=== PATIENT | male | born 1965 | race Caucasian/White ===

== ENCOUNTER 2022-02-11 01:56 | Emergency (ER) | payer SELFPAY ==
[2022-02-11 02:31] LABS: #Eosinphils 0.1 thou/uL (0.0-0.7); #Lymphocytes 2.8 thou/uL (1.20-3.40); #Monocytes 0.7 thou/uL (0.11-0.59); #Neutrophils 6.8 thou/uL (1.40-6.50); %Basophils 0.3 % (0.0-1.0); %Eosinophils 0.9 % (0.0-10.0); %Lymphocytes 26.7 % (21.0-51.0); %Monocytes 6.8 % (0.0-10.0); %Neutrophils 65.4 % (42.0-75.0); Hemoglobin 13.9 g/dL (14.0-18.0); Mean Corpuscular HGB CONC 34.7 g/dL (32.0-36.0); Mean Corpuscular Hemoglobin 28.9 pg (27.0-31.0); Mean Corpuscular Volume 83.3 fL (78.0-98.0); Mean Platelet Volume 7.9 fL (7.4-10.4); Platelet Count 234 thou/uL (130-400); RBC Distribution Width 13.2 % (11.5-14.5); Red Blood Cell (RBC) Count 4.81 mill/uL (4.70-6.10); White Blood Cell (WBC) Count 10.4 thou/uL (4.8-10.8)
[2022-02-11] MEDS ORDERED: Ondansetron PF 4 MG/2 ML Vial ONE (02:32)
[2022-02-11] MEDS ORDERED: Ketorolac Tromethamine 30 MG/ML VIAL ONE (02:32)
[2022-02-11 02:49] LABS: ALT (SGPT) 25 U/L (8-55); AST (SGOT) 26 U/L (5-34); Albumin 4.4 g/dL (3.5-5.0); Alkaline Phosphatase 90 U/L (40-110); Anion Gap 15 mmol/L (10-20); BUN (Urea Nitrogen) 19 mg/dL (8.4-25.7); Bilirubin, Total 0.3 mg/dL (0.2-1.2); Calc. Creatinine Clearance 0 mL/min (70-130); Calcium 9.7 mg/dL (7.8-10.44); Carbon Dioxide 26 mmol/L (22-29); Chloride 106 mmol/L (98-107); Globulin 3.6 g/dL (2.4-3.5); Glucose 123 mg/dL (70-105); Potassium 3.9 mmol/L (3.5-5.1); Sodium 143 mmol/L (136-145)
[2022-02-11 02:57] LABS: Bacteria/HPF None Seen HPF (None Seen); Bilirubin Negative (Negative); Blood, Urine Trace (Negative); Clarity Clear (Clear); Glucose, Urine (Dipstick) Normal (Negative); Ketone, Urine Negative (Negative); Leukocyte Negative Leu/uL (Negative); Nitrite Negative (Negative); Protein, Urine (Dipstick) 20 mg/dL (Neg-Trace); Specific Gravity, Urine 1.015 (1.002-1.036); Squamous Epithelial None Seen HPF (0-3); Urobilinogen Normal mg/dL (Less than 2); WBC/HPF 0-3 HPF (0-3)
== END 2022-02-11 05:10 | disposition home or self-care (01) ==
LOC: ERS 01:56
DX: N13.6 Pyonephrosis (principal); I10 Essential (primary) hypertension; E78.00 Pure hypercholesterolemia, unspecified; Z87.442 Personal history of urinary calculi; Z85.05 Personal history of malignant neoplasm of liver; Z79.899 Other long term (current) drug therapy
CPT/HCPCS: 36415; 74176; 80053; 81003; 81015; 85025; 96374; 96375; J1885; J2405

== ENCOUNTER 2022-02-14 12:28 | Inpatient (IN) | payer OTHER, SELFPAY ==
[2022-02-14 13:20] LABS: #Eosinphils 0.1 thou/uL (0.0-0.7); #Lymphocytes 1.6 thou/uL (1.20-3.40); #Monocytes 0.6 thou/uL (0.11-0.59); #Neutrophils 7.7 thou/uL (1.40-6.50); %Basophils 0.5 % (0.0-1.0); %Eosinophils 0.5 % (0.0-10.0); %Lymphocytes 16.1 % (21.0-51.0); %Monocytes 5.6 % (0.0-10.0); %Neutrophils 77.3 % (42.0-75.0); Hemoglobin 15.3 g/dL (14.0-18.0); Mean Corpuscular HGB CONC 34.7 g/dL (32.0-36.0); Mean Corpuscular Hemoglobin 29.4 pg (27.0-31.0); Mean Corpuscular Volume 84.9 fL (78.0-98.0); Platelet Count 208 thou/uL (130-400); RBC Distribution Width 12.9 % (11.5-14.5); White Blood Cell (WBC) Count 9.9 thou/uL (4.8-10.8)
[2022-02-14 13:50] LABS: ALT (SGPT) 21 U/L (8-55); AST (SGOT) 27 U/L (5-34); Albumin 4.6 g/dL (3.5-5.0); Alkaline Phosphatase 85 U/L (40-110); Anion Gap 17 mmol/L (10-20); BUN (Urea Nitrogen) 24 mg/dL (8.4-25.7); Bilirubin, Total 0.6 mg/dL (0.2-1.2); Calc. Creatinine Clearance 0 mL/min (70-130); Calcium 9.9 mg/dL (7.8-10.44); Carbon Dioxide 22 mmol/L (22-29); Chloride 104 mmol/L (98-107); Globulin 4.2 g/dL (2.4-3.5); Glucose 86 mg/dL (70-105); Potassium 4.2 mmol/L (3.5-5.1); Protein, Total 8.8 g/dL (6.0-8.3); Sodium 139 mmol/L (136-145)
[2022-02-14] MEDS ORDERED: Aspirin Chewable 81 MG TAB ONE (15:52)
[2022-02-14] MEDS ORDERED: Magnesium 2 GM/50 ML BAG (IN WATER) ONE (15:52)
[2022-02-14] MEDS ORDERED: Calcium Carbonate 500 MG ChewTAB PO PRN (16:14)
[2022-02-14] MEDS ORDERED: Acetaminophen 325 MG TAB PO PRN (16:14)
[2022-02-14] MEDS ORDERED: Sodium Chloride 0.9% 1,000 ML IV SCH (16:15)
[2022-02-14] MEDS ORDERED: Electrolyte Replacement Protocol 1 EACH FS PRN (16:45)
[2022-02-14 17:04] VITALS: BMI 39.1
[2022-02-14] MEDS: Carvedilol 3.125 MG TAB PO SCH (17:19)
[2022-02-14 17:36] LABS: Troponin I Less than 0.010 ng/mL (< 0.028)
[2022-02-14] MEDS ORDERED: Acetaminophen/Codeine 30-300mg Tablet PO PRN (18:49)
[2022-02-14] MEDS: Senokot S 8.6-50 MG TAB PO SCH (20:56)
[2022-02-14] MEDS: Polyethylene Glycol 3350 17 GM Packet PO SCH (20:56)
[2022-02-15] LABS: SARS-CoV-2 PCR by NAA Not Detected (NotDetected)
[2022-02-15] MEDS: Bisacodyl 10 MG SUPP PR SCH ×2 (04:15→19:20)
[2022-02-15 05:02] LABS: Anion Gap 13 mmol/L (10-20); BUN (Urea Nitrogen) 18 mg/dL (8.4-25.7); Calc. Creatinine Clearance 117 mL/min (70-130); Carbon Dioxide 25 mmol/L (22-29); Chloride 105 mmol/L (98-107); Glucose 93 mg/dL (70-105); Magnesium 2.1 mg/dL (1.6-2.6); Potassium 3.9 mmol/L (3.5-5.1); Sodium 139 mmol/L (136-145)
[2022-02-15] MEDS ORDERED: Nitroglycerin 0.4 MG TAB (25 Tab Bottle) ONE (05:52)
[2022-02-15] MEDS ORDERED: Nitroglycerin 0.4 MG TAB (25 Tab Bottle) SL PRN (05:54)
[2022-02-15 06:43] LABS: Troponin I Less than 0.010 ng/mL (< 0.028)
[2022-02-15 08:30] LABS: Troponin I 0.015 ng/mL (< 0.028)
[2022-02-15] MEDS: Amlodipine 10 MG TAB PO SCH (12:42)
[2022-02-15] MEDS: Carvedilol 3.125 MG TAB PO SCH ×2 (12:42→18:03)
[2022-02-15] MEDS: Senokot S 8.6-50 MG TAB PO SCH ×2 (12:42→22:46)
[2022-02-15] MEDS: Polyethylene Glycol 3350 17 GM Packet PO SCH ×2 (12:43→19:20)
[2022-02-16 07:38] LABS: Cardiac Risk 4.3 (Less than 4.5)
[2022-02-16] MEDS: Amlodipine 10 MG TAB PO SCH (11:20)
[2022-02-16] MEDS: Senokot S 8.6-50 MG TAB PO SCH (11:21)
[2022-02-16] MEDS: Polyethylene Glycol 3350 17 GM Packet PO SCH (11:21)
[2022-02-16] MEDS: Carvedilol 3.125 MG TAB PO SCH (11:21)
[2022-02-16 11:25] VITALS: BP 145/76
[2022-02-16 12:00] VITALS: TEMP 97.6
== END 2022-02-16 15:10 | disposition home or self-care (01) | DRG 312 ==
LOC: ERS 12:28 → 2SW 15:38 → OBSVTOIN 02-16 09:35
PROVIDERS: ADMIT Internal Medicine; ATTEND Internal Medicine
DX: R55 Syncope and collapse (principal); B20 Human immunodeficiency virus [HIV] disease; E66.9 Obesity, unspecified; Z20.822 Contact with and (suspected) exposure to COVID-19; I10 Essential (primary) hypertension; E78.5 Hyperlipidemia, unspecified; N20.0 Calculus of kidney; Z68.39 Body mass index [BMI] 39.0-39.9, adult; Z82.49 Family history of ischemic heart disease and other diseases of the circulatory system; Z90.49 Acquired absence of other specified parts of digestive tract
CPT/HCPCS: 36415; 71045; 74018; 76770; 78452; 80048; 80053; 80061; 83735; 84484; 85025; 93005; 93010; 93017; 93306; 93975; A9500; J0153; J3475; J7050; U0003; U0005